=== PATIENT | female | born 1960 | race Two or more races ===

== ENCOUNTER 2025-05-27 11:58 | Emergency (ER) | payer OTHER ==
[~2025-05-27] VITALS: Ht 157.5 cm; Wt 77.6 kg
[2025-05-27 13:32] VITALS: BP 116/79; O2SAT 97
[2025-05-27] MEDS ORDERED: GLIMEPIRIDE1 MG (13:36)
[2025-05-27] MEDS ORDERED: COZAAR25 MG (13:36)
[2025-05-27] MEDS ORDERED: GLIMEPIRIDE4 M1 (13:37)
[2025-05-27] MEDS ORDERED: TIROSINT150 MCG (13:38)
[2025-05-27 16:29] LABS: URINE APPEARANCE Clear; URINE BILIRRUBIN Negative (NEGATIVE); URINE BLOOD Negative; URINE COLOR Yellow; URINE KETONE Negative (NEGATIVE); URINE LEUKOCYTE Moderate; URINE NITRATE Negative; URINE PROTEIN Trace (NEGATIVE); URINE UROBILINOGEN 0.2 E.U./dl
[2025-05-27 16:30] LABS: BASO % 0.6 % (0.1-1.2); EOS # 0.21 (0.04-0.54); EOS % 1.6 % (0.7-7.0); LYMPH # 2.07 (1.18-3.74); LYMPH % 15.3 % (19.3-53.1); MEAN PLATELET VOLUME 10.30 fl (9.4-12.4); MONO # 0.77 (0.24-0.82); MONO % 5.7 % (4.7-12.5); NEUT # 10.31 (1.56-6.13); NEUT % 76.4 % (34.0-71.1); RED CELL DISTRIBUTION WIDTH 14.5 % (11.6-14.4)
[2025-05-27 16:34] LABS: URINE BACTERIA 3502.8 uL (0.0-1933); URINE EPITHELIAL CELLS 15.5 uL (0.0-38.8); URINE RBC 42.3 uL (0.0-20.8); URINE WBC 301.5 uL (0.0-23.2)
[2025-05-27 17:07] LABS: URINE CAST 0.43 uL (0.0-1.40); URINE GLUCOSE >=1000 MG/DL (NEGATIVE)
[2025-05-27 17:15] LABS: ALT/SGPT 26.0 U/L (12-78); AST/SGOT 26.0 U/L (15-37); BILIRUBIN TOTAL 0.29 mg/dL (0.3-1.2); BUN CREA RATIO 19.0 (7.0-25.0); CREATININE SERUM 0.68 mg/dL (0.55-1.02); GFR 86.84; GLOBULINA 4.5 G/DL (2.4-3.5); GLUCOSE FASTING 89.0 mg/dL (65-100); OSMOLALITY SERUM 283.0 MOSM/KG (275-295)
[2025-05-27 18:13] LABS: ERYTHROCYTE SEDIMENTATION RATE 42 mm/hr (0-30)
[2025-05-28] MEDS ORDERED: CEFTRIAXONE SODIUM 1,000 MG VIAL IM ONE (01:00)
[2025-05-28] MEDS ORDERED: IBUPROFEN600 MG PO (01:28)
[2025-05-28] MEDS ORDERED: MIRALAX510 GM PO (01:28)
[2025-05-28] MEDS ORDERED: MACROBID 100 M100 MG PO (01:28)
[2025-05-28] MEDS ORDERED: CEFTRIAXONE SODIUM 1,000 MG VIAL ONE (01:38)
== END 2025-05-28 01:52 | disposition home or self-care (01) ==
LOC: ER 11:58
PROVIDERS: General Practice
DX: N39.0 Urinary tract infection, site not specified (principal); K59.00 Constipation, unspecified; R10.20 Pelvic and perineal pain unspecified side; I10 Essential (primary) hypertension; E03.8 Other specified hypothyroidism; E11.9 Type 2 diabetes mellitus without complications; Z88.6 Allergy status to analgesic agent
CPT/HCPCS: 36415; 74177; 96372; 99284; J0696; Q9965